=== PATIENT | female | born 1985 | race African-American/Black ===

== ENCOUNTER 2017-01-15 09:56 | Emergency (ER) | payer OTHER ==
[~2017-01-15] VITALS: Ht 162.6 cm; Wt 97.6 kg
[2017-01-15 10:11] VITALS: BP 186/81; PULSE 60; RESP 16; TEMP 98.1; O2SAT 99
[2017-01-15] MEDS ORDERED: IMIT100T PO ×2 (10:26→10:53)
[2017-01-15] MEDS ORDERED: GABA600T PO (10:26)
[2017-01-15] MEDS ORDERED: SODIUM CHLORID 0.9% 500 ML INJ 500 ML IV ONE (10:30)
[2017-01-15] MEDS ORDERED: METOCLOPRAMIDE HCL 10 MG/2 ML VIAL IV PUSH ONE (10:30)
[2017-01-15] MEDS ORDERED: KETOROLAC TROMETHAMINE 30 MG/ML (IVP) VIAL IV PUSH ONE (10:30)
[2017-01-15] MEDS ORDERED: diphenhydrAMINE HCL 50 MG/ML VIAL IV PUSH ONE (10:30)
[2017-01-15] MEDS ORDERED: ZOFR4TAB3 SL (10:34)
[2017-01-15] MEDS ORDERED: BUTA1CAP PO (10:34)
--- NOTE | 2017-01-15 10:35 | PD ---
HPI Chief Complaint: Headache Time Seen by Provider: 10:22 Travel History International Travel<30 days: No Contact w/Intl Traveler<30days: No Traveled to known affect area: No History of Present Illness HPI 31-year-old female complains of headache. Patient states that headache started 3 days ago. Patient states that she has history of recurrent migraine headache. Patient has been seen by physician outside the state. Patient has been taking Imitrex for headache. Patient denies any recent head injury. Patient denies any fever. Patient complain of photophobia. Patient states that she has nausea but no vomiting. Patient denies any neck pain. Patient denies any chest pain or shortness of breath. Patient denies abdominal pain. Patient denies any focal weakness or numbness of extremity. Patient states that she recently had nerve block procedure which relieved the headache for a period of time. PFSH Past Medical History Musculoskeletal: Yes (CHRONIC NECK PAIN) Immunizations Current: Yes Migraines: Yes ?: Not LMP: 01/12/17 Tubal Ligation: Yes Past Surgical History Other Surgery: Yes (I&D LEFT ANTECUBITAL AREA FOR INFECTION) Social History Alcohol Use: Yes (SOCIALLY) Tobacco Use: Yes (1/2 PPD) Substance Use: Yes (THC OCCASIONALLY) Allergies-Medications (Allergen,Severity, Reaction): Coded Allergies: No Known Allergies (Verified Allergy, Unknown, 01/15/17) Reported Meds & Prescriptions Reported Meds & Active Scripts Active Zofran Odt (Ondansetron Odt) 4 Mg Tab 4 Mg SL Q6HR PRN Fioricet (Qqefwitqxf-Kmmvjlfbkmzkb-Helnszer) 50-300-40 Mg Cap 1-2 Cap PO Q6H PRN Reported Gabapentin 600 Mg Tab 600 Mg PO TID Imitrex (Sumatriptan Succinate) 100 Mg Tab 100 Mg PO ONCE PRN If a satisfactory response has not been obtained at 2 hours, a second dose may be administered Review of Systems General / Constitutional: No: Fever Eyes: Positive: Photophobia, No: Visual changes HENT: Positive: Headaches Cardiovascular: No: Chest Pain or Discomfort Respiratory: No: Shortness of Breath Gastrointestinal: No: Abdominal Pain Genitourinary: No: Dysuria Musculoskeletal: No: Pain Skin: No Rash Neurologic: No: Weakness Psychiatric: No: Depression Endocrine: No: Polydipsia Hematologic/Lymphatic: No: Easy Bruising Physical Exam Narrative GENERAL: Well-nourished, well-developed patient. SKIN: Focused skin assessment warm/dry. HEAD: Normocephalic. EYES: No scleral icterus. No injection or drainage. Pupils 2 mm equal reactive. NECK: Supple, trachea midline. No JVD or lymphadenopathy. No meningismus CARDIOVASCULAR: Regular rate and rhythm without murmurs, gallops, or rubs. RESPIRATORY: Breath sounds equal bilaterally. No accessory muscle use. GASTROINTESTINAL: Abdomen soft, non-tender, nondistended. MUSCULOSKELETAL: No cyanosis, or edema. BACK: Nontender without obvious deformity. No CVA tenderness. Neurologic exam: Patient's awake and alert oriented 3. No obvious focal neurological deficit. Data Data Last Documented VS Vital Signs Date Time Temp Pulse Resp B/P (MAP) Pulse Ox O2 Delivery O2 Flow Rate FiO2 01/15/17 10:11 98.1 60 16 186/81 (116) 99 Orders Orders Iv Access Insert/Monitor (01/15/17 10:26) Sodium Chlorid 0.9% 500 Ml Inj (Ns 500 M (01/15/17 10:30) Ketorolac Inj (Toradol Inj) (01/15/17 10:30) Diphenhydramine Inj (Benadryl Inj) (01/15/17 10:30) Metoclopramide Inj (Reglan Inj) (01/15/17 10:30) MDM Medical Decision Making Medical Screen Exam Complete: Yes Emergency Medical Condition: Yes Differential Diagnosis Differential diagnosis including migraine headache, tension headache, cluster headache. Narrative Course 31-year-old female with headache. History of migraine. Normal saline solution 500 cc IV bolus. Toradol 30 mg IV. Reglan 10 mg IV. Benadryl 50 mg IV. Diagnosis Primary Impression: Migraine headache Qualified Codes: G43.009 - Migraine without aura, not intractable, without status migrainosus Patient Instructions: General Instructions Additional Instructions: Take medications as directed. Follow-up with local neurologist and personal physician. Med/Other Pt SpecificInfo: Prescription(s) given Scripts Sumatriptan (Imitrex) 100 Mg Tab 100 MG PO ONCE Y for MIGRAINE HEADACHE, #30 TAB 0 Refills If a satisfactory response has not been obtained at 2 hours, a second dose may be administered Prov: Fabrice Resendez MD 01/15/17 Ondansetron Odt (Zofran Odt) 4 Mg Tab 4 MG SL Q6HR Y for Nausea/Vomiting, #10 TAB 0 Refills Prov: Fabrice Resendez MD 01/15/17 Wsltjeyvmm-Bjihkjzexsnun-Cghtlogq (Fioricet) 50-300-40 Mg Cap 1-2 CAP PO Q6H Y for HEADACHE, #30 CAP 0 Refills Prov: Fabrice Resendez MD 01/15/17 Disposition: 01 DISCHARGE HOME Condition: Stable Fabrice Resendez MD Jan 15, 2017 10:35
[2017-01-15 11:31] VITALS: RESP 16
[2017-01-15 11:44] VITALS: BP 151/76
[2017-01-17] MEDS ORDERED: PROM25TA10 PO (03:03)
[2017-01-17] MEDS ORDERED: GABA600T PO (03:16)
[2017-01-18] MEDS ORDERED: ZOFR4TAB3 SL (01:36)
== END 2017-01-15 11:50 | disposition home or self-care (01) ==
LOC: PHED 09:56
DX: G43.909 Migraine, unspecified, not intractable, without status migrainosus (principal); F17.200 Nicotine dependence, unspecified, uncomplicated; Z79.899 Other long term (current) drug therapy
CPT/HCPCS: 96361; 96374; 96375; 99284; J1200; J1885; J2765; J7040